=== PATIENT | female | born 1955 | race African-American/Black ===

== ENCOUNTER 2022-03-18 13:37 | Inpatient (IN) | payer SELFPAY ==
[~2022-03-18] VITALS: Ht 157.5 cm; Wt 67.7 kg
[2022-03-18] MEDS ORDERED: ONDANSETRON HCL 4MG/2ML INJ IV ONE (18:00)
[2022-03-18] MEDS ORDERED: MORPHINE SULFATE 4 MG/ML CPJ (NOT FOR IM USE) IV ONE (18:00)
[2022-03-18] MEDS ORDERED: SODIUM CHLORIDE 0.9% 1,000 ML IV ONE (19:45)
[2022-03-18 20:49] LABS: BASOPHILS % 0.2 % (0.0-2.0); EOSINOPHILS % 0.1 % (0.0-5.0); HEMATOCRIT. 32.6 % (36.0-48.0); HEMOGLOBIN. 10.3 g/dL (12.0-16.0); LYMPHOCYTES % 22.6 % (20.0-50.0); MEAN CORPUSCULAR VOLUME 85.6 fL (81.0-99.0); MEAN PLATELET VOLUME 9.9 fl (7.4-10.4); MONOCYTES % 5.1 % (2.0-8.0); PLATELET 324 x1000/uL (130-400); RED BLOOD CELL COUNT 3.81 mill/uL (4.2-5.4); RED CELL DISTRIBUTION WIDTH 13.4 % (11.6-14.6)
[2022-03-18 21:02] LABS: INR 1.1
[2022-03-18 21:10] LABS: CHLORIDE 92 mEq/L (98-107)
[2022-03-18] MEDS ORDERED: MORPHINE SULFATE 4 MG/ML CPJ (NOT FOR IM USE) IV NR (21:15)
[2022-03-18] MEDS ORDERED: ONDANSETRON HCL 4MG/2ML INJ IV NR (21:15)
[2022-03-18] MEDS: FAMOTIDINE 20MG/2ML VIAL IV SCH (21:32)
[2022-03-18] MEDS ORDERED: METRONIDAZOLE 500 MG PREMIX 100 ML IV ONE (21:45)
[2022-03-18] MEDS ORDERED: CEFTRIAXONE 1 G PREMIX 50 ML IV ONE (21:45)
[2022-03-18 21:47] LABS: CLARITY URINE CLOUDY (CLEAR); COLOR URINE DARK YELLOW (YELLOW); KETONES URINE 2+ (NEGATIVE); LEUKOCYTE ESTERASE URINE NEGATIVE (NEGATIVE); NITRITE URINE NEGATIVE (NEGATIVE); OCCULT BLOOD URINE 2+ (NEGATIVE); PROTEIN URINE 1+ (NEGATIVE); SPECIFIC GRAVITY URINE 1.031 (1.005-1.030)
[2022-03-18 22:09] LABS: *AMPHETAMINES SCREEN URINE NEGATIVE (NEGATIVE); *BARBITURATES SCREEN URINE NEGATIVE (NEGATIVE); *BENZODIAZEPINES SCREEN URINE NEGATIVE (NEGATIVE); *COCAINE SCREEN URINE NEGATIVE (NEGATIVE); CANNABINOID URINE SCREEN NEGATIVE (NEGATIVE); METHADONE URINE SCREEN NEGATIVE (NEGATIVE); OPIATES URINE SCREEN NEGATIVE (NEGATIVE); PHENCYCLIDINE URINE SCREEN NEGATIVE (NEGATIVE)
[2022-03-19] MEDS ORDERED: CEFTRIAXONE 1 G PREMIX 50 ML IV NR (01:45)
[2022-03-19] MEDS ORDERED: SODIUM CHLORIDE 0.9% 1,000 ML IV SCH (07:30)
[2022-03-19] MEDS ORDERED: ONDANSETRON HCL 4MG/2ML INJ IV PRN (09:15)
[2022-03-19] MEDS ORDERED: HYDROCODONE/ACETAMINOPHEN 5/325MG TABLET PO PRN (09:15)
[2022-03-19] MEDS: FAMOTIDINE 20MG/2ML VIAL IV SCH (09:29)
[2022-03-19] MEDS ORDERED: NALOXONE HCL 0.4MG/ML VIAL IV PRN (09:30)
[2022-03-19] MEDS ORDERED: PIPERACILLIN/TAZ 3.375G PREMIX 50 ML IV SCH ×2 (09:30→14:00)
[2022-03-19 12:00] VITALS: BP_SYST 100; BP_DIAS 78; BP_DIAS 80
[2022-03-19 14:00] VITALS: BP 110/78
[2022-03-19] MEDS: PIPERACILLIN/TAZOBACTAM 3.375G in DEXT 5% WATER 50ML IV SCH ×2 (15:12→23:11)
[2022-03-19 16:00] VITALS: BP 99/68
[2022-03-19 18:00] VITALS: BP 98/70
[2022-03-19 20:00] VITALS: BP 108/62
[2022-03-19] MEDS ORDERED: ACETAMINOPHEN 325MG TABLET PO PRN (22:30)
[2022-03-19] MEDS ORDERED: DEXTROSE 50% WATER 50ML SYRINGE IV PRN (22:30)
[2022-03-20] VITALS: BP 109/61
[2022-03-20] MEDS: BLOOD SUGAR DIAGNOSTIC STRIP TEST SCH ×4 (07:12→21:00)
[2022-03-20] MEDS: PIPERACILLIN/TAZOBACTAM 3.375G in DEXT 5% WATER 50ML IV SCH ×3 (07:12→23:03)
[2022-03-20] MEDS: INSULIN LISPRO 100 UNITS/ML SUBCUT SCH ×4 (07:19→23:05)
[2022-03-20 08:00] VITALS: BP 101/97
[2022-03-20 08:16] LABS: MEAN CORPUSCULAR HEMOGLOBIN 26.8 pg (28.0-32.0); MEAN CORPUSCULAR VOLUME 87.3 fL (81.0-99.0); MEAN PLATELET VOLUME 10.8 fl (7.4-10.4); PLATELET 233 x1000/uL (130-400); RED BLOOD CELL COUNT 3.12 mill/uL (4.2-5.4); RED CELL DISTRIBUTION WIDTH 13.9 % (11.6-14.6)
[2022-03-20 08:21] LABS: HEMATOCRIT. 27.3 % (36.0-48.0); HEMOGLOBIN. 8.4 g/dL (12.0-16.0)
[2022-03-20 08:47] LABS: CHLORIDE 98 mEq/L (98-107)
[2022-03-20] MEDS ORDERED: INSULIN GLARGINE 100 UNITS/ML SUBCUT SCH (10:00)
[2022-03-20] MEDS: FAMOTIDINE 20MG/2ML VIAL IV SCH (10:14)
[2022-03-20 12:00] VITALS: BP 99/98
[2022-03-20 12:23] LABS: PLATELET ESTIMATE NORMAL
[2022-03-20 16:00] VITALS: BP 118/71
[2022-03-20 17:14] LABS: TOTAL IRON BINDING CAPACITY 210 ug/dL (250-450)
[2022-03-20] MEDS: IRON SUCROSE COMPLEX 100 MG/5 ML ML IV SCH (18:22)
[2022-03-20 18:26] LABS: CARCINO EMBRYONIC ANTIGEN 2.3 ng/ml
[2022-03-20 18:38] LABS: HEPATITIS B SURFACE ANTIGEN NEGATIVE
[2022-03-20 18:47] VITALS: BP 118/71
[2022-03-20 20:00] VITALS: BP 102/60
[2022-03-20] MEDS ORDERED: ACETAMINOPHEN 650MG SUPP PR PRN (21:00)
[2022-03-20] MEDS: INSULIN GLARGINE 100 UNITS/ML SUBCUT SCH (23:05)
[2022-03-21] VITALS (79 sets, daily range): BP systolic 83–137; BP diastolic 36–74
[2022-03-21] MEDS ORDERED: IOHEXOL-300 100 ML BOTTLE ONE (03:08)
[2022-03-21] MEDS: PIPERACILLIN/TAZOBACTAM 3.375G in DEXT 5% WATER 50ML IV SCH ×3 (05:15→21:05)
[2022-03-21] MEDS: BLOOD SUGAR DIAGNOSTIC STRIP TEST SCH ×4 (05:43→20:56)
[2022-03-21] MEDS: INSULIN LISPRO 100 UNITS/ML SUBCUT SCH ×4 (05:48→20:57)
[2022-03-21] MEDS: INSULIN GLARGINE 100 UNITS/ML SUBCUT SCH ×2 (10:00→21:09)
[2022-03-21 11:34] LABS: HEMATOCRIT. 27.5 % (36.0-48.0); HEMOGLOBIN. 8.7 g/dL (12.0-16.0); MEAN PLATELET VOLUME 10.3 fl (7.4-10.4); PLATELET 227 x1000/uL (130-400); RED BLOOD CELL COUNT 3.24 mill/uL (4.2-5.4); RED CELL DISTRIBUTION WIDTH 13.6 % (11.6-14.6)
[2022-03-21 12:13] LABS: CHLORIDE 103 mEq/L (98-107)
[2022-03-21 12:21] LABS: BG BASE EXCESS -0.7 mmol/L (-2.0-2.0); BG CARBOXYHEMOGLOBIN 0.3 % (0.5-1.5); BG DEOXYHEMOGLOBIN 1.7 % (0.0-5.0); BG FRACTION INSPIRED OXYGEN 21; BG HCO3 ACT 22.3 mmol/L (22.0-26.0); BG METHEMOGLOBIN 0.3 % (0.0-1.5); BG OXYGEN SATURATION 98.3 % (92.0-98.5); BG OXYHEMOGLOBIN 97.7 % (94.0-97.0); BG PCO2 30.8 mmHg (35.0-45.0); BG PH 7.478 (7.350-7.450); BG PO2 102.3 mmHg (75.0-100.0); BG SAMPLE SITE RIGHT BRACHIAL; BG TOTAL HEMOGLOBIN 9.3 g/dL (12.0-18.0); BG VENT MODE ROOM AIR
[2022-03-21] MEDS ORDERED: POTASSIUM CHLORIDE 20MEQ TABLET SR PO NR (12:30)
[2022-03-21 12:36] LABS: PLATELET ESTIMATE NORMAL
[2022-03-21] MEDS: ENOXAPARIN 40MG/0.4ML SYR SUBCUT SCH (17:43)
[2022-03-21] MEDS: IRON SUCROSE COMPLEX 100 MG/5 ML ML IV SCH (17:43)
[2022-03-21] MEDS: BISACODYL 5MG TABLET PO SCH (21:04)
[2022-03-21] MEDS: METOCLOPRAMIDE HCL 10MG/2ML VIAL IV SCH (21:04)
[2022-03-21] MEDS: SORBITOL 70% SOLN 30ML PO SCH (21:09)
[2022-03-22] VITALS (64 sets, daily range): BP systolic 53–148; BP diastolic 26–85
[2022-03-22] MEDS: METOCLOPRAMIDE HCL 10MG/2ML VIAL IV SCH (00:12)
[2022-03-22] MEDS: SORBITOL 70% SOLN 30ML PO SCH (00:13)
[2022-03-22] MEDS: BISACODYL 5MG TABLET PO SCH (00:13)
[2022-03-22 05:32] LABS: HEMATOCRIT. 27.9 % (36.0-48.0); HEMOGLOBIN. 8.6 g/dL (12.0-16.0); MEAN CORPUSCULAR HEMOGLOBIN 26.5 pg (28.0-32.0); MEAN CORPUSCULAR VOLUME 85.9 fL (81.0-99.0); MEAN PLATELET VOLUME 10.7 fl (7.4-10.4); PLATELET 227 x1000/uL (130-400); RED BLOOD CELL COUNT 3.25 mill/uL (4.2-5.4); RED CELL DISTRIBUTION WIDTH 13.8 % (11.6-14.6)
[2022-03-22 05:41] LABS: INR 1.1; PROTHROMBIN TIME 11.5 sec (9.6-11.0)
[2022-03-22 05:58] LABS: CHLORIDE 102 mEq/L (98-107)
[2022-03-22] MEDS: BLOOD SUGAR DIAGNOSTIC STRIP TEST SCH ×4 (06:08→21:20)
[2022-03-22] MEDS: INSULIN LISPRO 100 UNITS/ML SUBCUT SCH ×4 (06:08→21:00)
[2022-03-22] MEDS: PIPERACILLIN/TAZOBACTAM 3.375G in DEXT 5% WATER 50ML IV SCH ×3 (06:09→21:30)
[2022-03-22] MEDS ORDERED: GADOTERATE MEGLUMINE 5 MMOL/10 ML VIAL IV ONE (09:21)
[2022-03-22] MEDS: INSULIN GLARGINE 100 UNITS/ML SUBCUT SCH ×2 (10:00→21:20)
[2022-03-22 10:08] LABS: PLATELET ESTIMATE NORMAL
[2022-03-22] MEDS ORDERED: POTASSIUM CHLORIDE INJ 40 MEQ in DEXT 5% WATER 250 ML IV ONE (11:15)
[2022-03-22] MEDS: KCL 20MEQ/100ML PREMIX 100 ML IV SCH ×2 (13:13→16:01)
[2022-03-22] MEDS ORDERED: VASOPRESSIN 20 UNIT in SODIUM CHLORIDE 0.9% 99 ML IV STA (13:41)
[2022-03-22] MEDS ORDERED: SODIUM BICARBONATE 4% (2.4MEQ) 5ML VIAL IV ONE ×2 (13:50→13:51)
[2022-03-22] MEDS ORDERED: LIDOCAINE HCL 1% 50ML VIAL (10MG/ML) ONE (13:50)
[2022-03-22] MEDS ORDERED: MORPHINE SULFATE 2 MG/ML CPJ (NOT FOR IM USE) IV SCH (14:30)
[2022-03-22 17:35] LABS: HEMATOCRIT 30.3 % (36.0-48.0); HEMOGLOBIN 9.3 g/dL (12.0-16.0)
[2022-03-22] MEDS: ENOXAPARIN 40MG/0.4ML SYR SUBCUT SCH (18:00)
[2022-03-22] MEDS: IRON SUCROSE COMPLEX 100 MG/5 ML ML IV SCH (18:53)
[2022-03-23] VITALS (32 sets, daily range): BP systolic 95–132; BP diastolic 45–82
[2022-03-23 06:00] LABS: HEMATOCRIT. 26.9 % (36.0-48.0); HEMOGLOBIN. 8.6 g/dL (12.0-16.0); MEAN CORPUSCULAR HEMOGLOBIN 27.1 pg (28.0-32.0); MEAN CORPUSCULAR VOLUME 84.7 fL (81.0-99.0); MEAN PLATELET VOLUME 11.1 fl (7.4-10.4); PLATELET 232 x1000/uL (130-400); RED BLOOD CELL COUNT 3.17 mill/uL (4.2-5.4); RED CELL DISTRIBUTION WIDTH 13.4 % (11.6-14.6)
[2022-03-23] MEDS: INSULIN LISPRO 100 UNITS/ML SUBCUT SCH ×3 (06:35→18:02)
[2022-03-23] MEDS: PIPERACILLIN/TAZOBACTAM 3.375G in DEXT 5% WATER 50ML IV SCH ×2 (06:35→14:52)
[2022-03-23] MEDS: BLOOD SUGAR DIAGNOSTIC STRIP TEST SCH ×4 (06:35→21:38)
[2022-03-23 06:38] LABS: CHLORIDE 105 mEq/L (98-107)
[2022-03-23] MEDS: INSULIN GLARGINE 100 UNITS/ML SUBCUT SCH (10:00)
[2022-03-23 12:13] LABS: PLATELET ESTIMATE NORMAL
[2022-03-23] MEDS: ENOXAPARIN 40MG/0.4ML SYR SUBCUT SCH (18:01)
[2022-03-23] MEDS: ATORVASTATIN CALCIUM 20MG TABLET PO SCH (21:00)
[2022-03-24] VITALS: BP 121/70
[2022-03-24] MEDS: INSULIN GLARGINE 100 UNITS/ML SUBCUT SCH ×3 (00:41→21:21)
[2022-03-24] MEDS: INSULIN LISPRO 100 UNITS/ML SUBCUT SCH ×5 (00:42→21:00)
[2022-03-24] MEDS: PIPERACILLIN/TAZOBACTAM 3.375G in DEXT 5% WATER 50ML IV SCH ×4 (00:42→21:32)
[2022-03-24 04:00] VITALS: BP 101/58
[2022-03-24] MEDS: BLOOD SUGAR DIAGNOSTIC STRIP TEST SCH ×4 (06:17→21:20)
[2022-03-24 07:03] LABS: HEMATOCRIT. 26.1 % (36.0-48.0); HEMOGLOBIN. 8.2 g/dL (12.0-16.0); MEAN CORPUSCULAR VOLUME 85.5 fL (81.0-99.0); MEAN PLATELET VOLUME 11.2 fl (7.4-10.4); PLATELET 220 x1000/uL (130-400); RED BLOOD CELL COUNT 3.05 mill/uL (4.2-5.4); RED CELL DISTRIBUTION WIDTH 13.5 % (11.6-14.6)
[2022-03-24 07:06] LABS: CHLORIDE 100 mEq/L (98-107)
[2022-03-24 07:36] LABS: HDL CHOLESTEROL 10 mg/dL (40-59); LDL CHOLESTEROL 264 mg/dL (5-100)
[2022-03-24 08:00] VITALS: BP 112/61
[2022-03-24] MEDS: ASPIRIN 81MG TABLET PO SCH (09:19)
[2022-03-24 10:45] LABS: VITAMIN B12 SERUM > 2000.0 pg/mL (211-911)
[2022-03-24 12:00] VITALS: BP 110/63
[2022-03-24 13:40] LABS: PLATELET ESTIMATE NORMAL
[2022-03-24 16:00] VITALS: BP 108/61
[2022-03-24] MEDS: ENOXAPARIN 40MG/0.4ML SYR SUBCUT SCH (17:56)
[2022-03-24] MEDS ORDERED: LACTULOSE 20G/30ML UDC PO NR (18:30)
[2022-03-24 20:00] VITALS: BP 129/77
[2022-03-24] MEDS: SENNOSIDES 8.6MG TABLET PO SCH (21:32)
[2022-03-25] VITALS: BP 117/66
[2022-03-25 04:00] VITALS: BP 111/61
[2022-03-25] MEDS: PIPERACILLIN/TAZOBACTAM 3.375G in DEXT 5% WATER 50ML IV SCH ×2 (04:59→14:11)
[2022-03-25] MEDS: INSULIN LISPRO 100 UNITS/ML SUBCUT SCH ×4 (05:13→21:13)
[2022-03-25] MEDS: BLOOD SUGAR DIAGNOSTIC STRIP TEST SCH ×4 (05:13→21:12)
[2022-03-25 08:00] VITALS: BP 119/62
[2022-03-25 08:08] LABS: HEMATOCRIT. 26.2 % (36.0-48.0); HEMOGLOBIN. 8.6 g/dL (12.0-16.0); MEAN CORPUSCULAR HEMOGLOBIN 27.9 pg (28.0-32.0); MEAN CORPUSCULAR VOLUME 85.3 fL (81.0-99.0); MEAN PLATELET VOLUME 9.9 fl (7.4-10.4); PLATELET 266 x1000/uL (130-400); RED BLOOD CELL COUNT 3.07 mill/uL (4.2-5.4); RED CELL DISTRIBUTION WIDTH 13.3 % (11.6-14.6)
[2022-03-25 08:23] LABS: CHLORIDE 102 mEq/L (98-107)
[2022-03-25] MEDS: ASPIRIN 81MG TABLET PO SCH (09:00)
[2022-03-25] MEDS: DOCUSATE SODIUM 250MG CAPSULE PO SCH (09:00)
[2022-03-25] MEDS ORDERED: POTASSIUM CHLORIDE 20MEQ TABLET SR PO NR (10:30)
[2022-03-25 12:00] VITALS: BP 128/69
[2022-03-25 16:00] VITALS: BP 140/70
[2022-03-25] MEDS: ENOXAPARIN 40MG/0.4ML SYR SUBCUT SCH (18:30)
[2022-03-25 20:00] VITALS: BP 127/71
[2022-03-25] MEDS: SENNOSIDES 8.6MG TABLET PO SCH (21:12)
[2022-03-25] MEDS: ATORVASTATIN CALCIUM 20MG TABLET PO SCH (21:12)
[2022-03-25] MEDS: INSULIN GLARGINE 100 UNITS/ML SUBCUT SCH (21:14)
[2022-03-25 21:35] LABS: PLATELET ESTIMATE NORMAL
[2022-03-25] MEDS: CEFTRIAXONE 2 G in DEXTROSE 5% WATER 50 ML IV SCH (22:20)
[2022-03-26] VITALS: BP 122/68
[2022-03-26 04:00] VITALS: BP 124/68
[2022-03-26] MEDS: INSULIN LISPRO 100 UNITS/ML SUBCUT SCH ×4 (06:15→21:49)
[2022-03-26] MEDS: BLOOD SUGAR DIAGNOSTIC STRIP TEST SCH ×4 (06:15→21:49)
[2022-03-26 07:33] LABS: HEMATOCRIT. 27.2 % (36.0-48.0); HEMOGLOBIN. 8.8 g/dL (12.0-16.0); MEAN CORPUSCULAR HEMOGLOBIN 27.8 pg (28.0-32.0); MEAN CORPUSCULAR VOLUME 85.6 fL (81.0-99.0); MEAN PLATELET VOLUME 9.6 fl (7.4-10.4); PLATELET 326 x1000/uL (130-400); RED BLOOD CELL COUNT 3.18 mill/uL (4.2-5.4); RED CELL DISTRIBUTION WIDTH 13.6 % (11.6-14.6)
[2022-03-26 07:41] LABS: CHLORIDE 103 mEq/L (98-107)
[2022-03-26 08:00] VITALS: BP 130/69
[2022-03-26] MEDS: DOCUSATE SODIUM 250MG CAPSULE PO SCH (09:32)
[2022-03-26] MEDS: ASPIRIN 81MG TABLET PO SCH (09:32)
[2022-03-26] MEDS: INSULIN GLARGINE 100 UNITS/ML SUBCUT SCH ×2 (09:37→21:47)
[2022-03-26 12:00] VITALS: BP 132/66
[2022-03-26] MEDS: CEFTRIAXONE 2 G in DEXTROSE 5% WATER 50 ML IV SCH (15:20)
[2022-03-26 16:00] VITALS: BP 129/70
[2022-03-26] MEDS: ENOXAPARIN 40MG/0.4ML SYR SUBCUT SCH (17:45)
[2022-03-26 20:00] VITALS: BP 134/74
[2022-03-26] MEDS: SENNOSIDES 8.6MG TABLET PO SCH (21:47)
[2022-03-26] MEDS: ATORVASTATIN CALCIUM 20MG TABLET PO SCH (21:47)
[2022-03-27] VITALS: BP 129/72
[2022-03-27 04:00] VITALS: BP 129/72
[2022-03-27 05:16] LABS: PLATELET ESTIMATE NORMAL
[2022-03-27] MEDS: BLOOD SUGAR DIAGNOSTIC STRIP TEST SCH ×4 (06:32→21:57)
[2022-03-27] MEDS: INSULIN LISPRO 100 UNITS/ML SUBCUT SCH ×4 (06:33→21:56)
[2022-03-27 07:23] LABS: BASOPHILS % 0.8 % (0.0-2.0); EOSINOPHILS % 0.3 % (0.0-5.0); HEMATOCRIT. 28.6 % (36.0-48.0); HEMOGLOBIN. 9.3 g/dL (12.0-16.0); LYMPHOCYTES % 18.7 % (20.0-50.0); MEAN CORPUSCULAR HEMOGLOBIN 27.7 pg (28.0-32.0); MEAN CORPUSCULAR VOLUME 85.6 fL (81.0-99.0); MEAN PLATELET VOLUME 9.1 fl (7.4-10.4); MONOCYTES % 7.3 % (2.0-8.0); NEUTROPHILS % 72.9 % (40.0-76.0); PLATELET 353 x1000/uL (130-400); RED BLOOD CELL COUNT 3.35 mill/uL (4.2-5.4); RED CELL DISTRIBUTION WIDTH 13.5 % (11.6-14.6)
[2022-03-27 07:33] LABS: CHLORIDE 105 mEq/L (98-107)
[2022-03-27 08:00] VITALS: BP 129/73
[2022-03-27] MEDS ORDERED: BISACODYL 10MG SUPP PR NR (08:45)
[2022-03-27] MEDS ORDERED: POLYETHYLENE GLYCOL 3350 (17GM) 1 DOSE PACK PO PRN (08:45)
[2022-03-27] MEDS: ASPIRIN 81MG TABLET PO SCH (09:28)
[2022-03-27] MEDS: DOCUSATE SODIUM 250MG CAPSULE PO SCH (09:28)
[2022-03-27] MEDS: CLOPIDOGREL 75MG TABLET PO SCH (09:29)
[2022-03-27] MEDS: INSULIN GLARGINE 100 UNITS/ML SUBCUT SCH ×2 (10:51→21:55)
[2022-03-27 12:00] VITALS: BP 113/75
[2022-03-27 16:00] VITALS: BP 130/72
[2022-03-27] MEDS: CEFTRIAXONE 2 G in DEXTROSE 5% WATER 50 ML IV SCH (17:18)
[2022-03-27] MEDS: ENOXAPARIN 40MG/0.4ML SYR SUBCUT SCH (17:40)
[2022-03-27 20:00] VITALS: BP 147/83
[2022-03-27] MEDS: SENNOSIDES 8.6MG TABLET PO SCH (21:56)
[2022-03-27] MEDS: ATORVASTATIN CALCIUM 20MG TABLET PO SCH (21:56)
[2022-03-28] VITALS: BP 112/65
[2022-03-28 04:00] VITALS: BP 106/60
[2022-03-28] MEDS: BLOOD SUGAR DIAGNOSTIC STRIP TEST SCH ×4 (05:57→21:36)
[2022-03-28] MEDS: INSULIN LISPRO 100 UNITS/ML SUBCUT SCH ×4 (05:58→21:46)
[2022-03-28 08:00] VITALS: BP 116/61
[2022-03-28 08:04] LABS: BASOPHILS % 1.1 % (0.0-2.0); EOSINOPHILS % 0.6 % (0.0-5.0); HEMOGLOBIN. 9.3 g/dL (12.0-16.0); LYMPHOCYTES % 21.7 % (20.0-50.0); MEAN CORPUSCULAR HEMOGLOBIN 27.6 pg (28.0-32.0); MEAN CORPUSCULAR VOLUME 86.2 fL (81.0-99.0); MEAN PLATELET VOLUME 8.9 fl (7.4-10.4); MONOCYTES % 7.5 % (2.0-8.0); NEUTROPHILS % 69.1 % (40.0-76.0); PLATELET 379 x1000/uL (130-400); RED BLOOD CELL COUNT 3.37 mill/uL (4.2-5.4); RED CELL DISTRIBUTION WIDTH 13.9 % (11.6-14.6)
[2022-03-28 08:25] LABS: CHLORIDE 105 mEq/L (98-107)
[2022-03-28] MEDS: CLOPIDOGREL 75MG TABLET PO SCH (09:37)
[2022-03-28] MEDS: DOCUSATE SODIUM 250MG CAPSULE PO SCH (09:37)
[2022-03-28] MEDS: ASPIRIN 81MG TABLET PO SCH (09:37)
[2022-03-28] MEDS: INSULIN GLARGINE 100 UNITS/ML SUBCUT SCH ×2 (09:38→21:46)
[2022-03-28 12:00] VITALS: BP_SYST 141; BP_SYST 144; BP_DIAS 80
[2022-03-28 16:00] VITALS: BP 143/65
[2022-03-28] MEDS: CEFTRIAXONE 2 G in DEXTROSE 5% WATER 50 ML IV SCH (16:42)
[2022-03-28] MEDS: ENOXAPARIN 40MG/0.4ML SYR SUBCUT SCH (18:08)
[2022-03-28 20:00] VITALS: BP 139/66
[2022-03-28] MEDS: SENNOSIDES 8.6MG TABLET PO SCH (21:31)
[2022-03-28] MEDS: ATORVASTATIN CALCIUM 20MG TABLET PO SCH (21:31)
[2022-03-29] VITALS: BP 116/62
[2022-03-29 04:00] VITALS: BP 122/65
[2022-03-29] MEDS: BLOOD SUGAR DIAGNOSTIC STRIP TEST SCH ×4 (05:50→20:07)
[2022-03-29] MEDS: INSULIN LISPRO 100 UNITS/ML SUBCUT SCH ×4 (05:51→20:26)
[2022-03-29 07:00] LABS: CHLORIDE 106 mEq/L (98-107)
[2022-03-29 07:12] LABS: BASOPHILS % 0.9 % (0.0-2.0); EOSINOPHILS % 0.3 % (0.0-5.0); HEMATOCRIT. 28.7 % (36.0-48.0); HEMOGLOBIN. 9.2 g/dL (12.0-16.0); LYMPHOCYTES % 26.6 % (20.0-50.0); MEAN CORPUSCULAR HEMOGLOBIN 27.4 pg (28.0-32.0); MEAN CORPUSCULAR VOLUME 85.5 fL (81.0-99.0); MEAN PLATELET VOLUME 9.6 fl (7.4-10.4); NEUTROPHILS % 64.2 % (40.0-76.0); PLATELET 431 x1000/uL (130-400); RED BLOOD CELL COUNT 3.35 mill/uL (4.2-5.4); RED CELL DISTRIBUTION WIDTH 14.2 % (11.6-14.6)
[2022-03-29 08:00] VITALS: BP 104/57
[2022-03-29] MEDS: CLOPIDOGREL 75MG TABLET PO SCH (09:16)
[2022-03-29] MEDS: DOCUSATE SODIUM 250MG CAPSULE PO SCH (09:16)
[2022-03-29] MEDS: ASPIRIN 81MG TABLET PO SCH (09:16)
[2022-03-29] MEDS: INSULIN GLARGINE 100 UNITS/ML SUBCUT SCH ×2 (09:49→22:03)
[2022-03-29 12:00] VITALS: BP 140/81
[2022-03-29 16:00] VITALS: BP 121/83
[2022-03-29] MEDS: CEFTRIAXONE 2 G in DEXTROSE 5% WATER 50 ML IV SCH (16:41)
[2022-03-29] MEDS: ENOXAPARIN 40MG/0.4ML SYR SUBCUT SCH (18:38)
[2022-03-29 20:00] VITALS: BP 145/72
[2022-03-29] MEDS: ATORVASTATIN CALCIUM 20MG TABLET PO SCH (20:25)
[2022-03-29] MEDS: SENNOSIDES 8.6MG TABLET PO SCH (20:25)
[2022-03-30] VITALS: BP 122/64
[2022-03-30 04:00] VITALS: BP 115/60
[2022-03-30] MEDS: BLOOD SUGAR DIAGNOSTIC STRIP TEST SCH ×4 (05:59→20:45)
[2022-03-30] MEDS: INSULIN LISPRO 100 UNITS/ML SUBCUT SCH ×4 (05:59→21:29)
[2022-03-30 06:31] LABS: BASOPHILS % 0.8 % (0.0-2.0); EOSINOPHILS % 0.3 % (0.0-5.0); HEMATOCRIT. 29.3 % (36.0-48.0); HEMOGLOBIN. 9.5 g/dL (12.0-16.0); LYMPHOCYTES % 18.6 % (20.0-50.0); MEAN CORPUSCULAR HEMOGLOBIN 27.8 pg (28.0-32.0); MEAN PLATELET VOLUME 9.4 fl (7.4-10.4); MONOCYTES % 7.9 % (2.0-8.0); NEUTROPHILS % 72.4 % (40.0-76.0); PLATELET 449 x1000/uL (130-400); RED CELL DISTRIBUTION WIDTH 14.2 % (11.6-14.6)
[2022-03-30 06:44] LABS: CHLORIDE 102 mEq/L (98-107)
[2022-03-30 08:00] VITALS: BP 107/59
[2022-03-30] MEDS: DOCUSATE SODIUM 250MG CAPSULE PO SCH (08:07)
[2022-03-30] MEDS: CLOPIDOGREL 75MG TABLET PO SCH (08:07)
[2022-03-30] MEDS: ASPIRIN 81MG TABLET PO SCH (08:07)
[2022-03-30] MEDS: INSULIN GLARGINE 100 UNITS/ML SUBCUT SCH ×2 (09:12→21:30)
[2022-03-30 12:00] VITALS: BP 108/63
[2022-03-30] MEDS ORDERED: DOCU250C14 PO (14:50)
[2022-03-30] MEDS ORDERED: LEVO750T46 MT (14:50)
[2022-03-30] MEDS ORDERED: CLOP75TA15 PO (14:50)
[2022-03-30] MEDS ORDERED: ASPI-1160 PO (14:50)
[2022-03-30] MEDS ORDERED: LANTUSUD SUBCUT (14:50)
[2022-03-30] MEDS ORDERED: ATOR20TA PO (14:50)
[2022-03-30 16:00] VITALS: BP 105/81
[2022-03-30] MEDS: ENOXAPARIN 40MG/0.4ML SYR SUBCUT SCH (18:33)
[2022-03-30] MEDS: CEFTRIAXONE 2 G in DEXTROSE 5% WATER 50 ML IV SCH (18:33)
[2022-03-30 20:00] VITALS: BP 129/66
[2022-03-30] MEDS ORDERED: ATORVASTATIN CALCIUM 40MG TABLET PO SCH (21:00)
[2022-03-30] MEDS: SENNOSIDES 8.6MG TABLET PO SCH (21:29)
[2022-03-31] VITALS: BP 128/61
[2022-03-31 04:00] VITALS: BP 125/72
[2022-03-31] MEDS: BLOOD SUGAR DIAGNOSTIC STRIP TEST SCH ×3 (06:40→16:47)
[2022-03-31] MEDS: INSULIN LISPRO 100 UNITS/ML SUBCUT SCH ×3 (07:10→16:51)
[2022-03-31 08:00] VITALS: BP 100/66
[2022-03-31] MEDS: INSULIN GLARGINE 100 UNITS/ML SUBCUT SCH (09:44)
[2022-03-31] MEDS: DOCUSATE SODIUM 250MG CAPSULE PO SCH (09:44)
[2022-03-31] MEDS: CLOPIDOGREL 75MG TABLET PO SCH (09:44)
[2022-03-31] MEDS: ASPIRIN 81MG TABLET PO SCH (09:45)
[2022-03-31 12:00] VITALS: BP 118/68
[2022-03-31 16:00] VITALS: BP 110/66
[2022-03-31 16:30] VITALS: BP 110/66
[2022-03-31] MEDS: CEFTRIAXONE 2 G in DEXTROSE 5% WATER 50 ML IV SCH (16:47)
== END 2022-03-31 18:45 | disposition home or self-care (01) | DRG 720 ==
LOC: ER 13:37 → MICUSO 22:27 → 6WST 03-19 12:01 → MICUNO 03-21 02:17 → 7EST 03-23 21:09
PROVIDERS: ADMIT Internal Medicine; ATTEND Internal Medicine
PROC: 0F913ZZ Drainage of Right Lobe Liver, Percutaneous Approach (ICD-10-PCS; principal; 2022-03-22)
PROC: 4A00X4Z Measurement of Central Nervous Electrical Activity, External Approach (ICD-10-PCS; 2022-03-22)
DX: A41.59 Other Gram-negative sepsis (principal); G92.8 Other toxic encephalopathy; K75.0 Abscess of liver; E43 Unspecified severe protein-calorie malnutrition; K57.92 Diverticulitis of intestine, part unspecified, without perforation or abscess without bleeding; E87.8 Other disorders of electrolyte and fluid balance, not elsewhere classified; C26.9 Malignant neoplasm of ill-defined sites within the digestive system; E86.1 Hypovolemia; D63.8 Anemia in other chronic diseases classified elsewhere; E87.1 Hypo-osmolality and hyponatremia; E88.09 Other disorders of plasma-protein metabolism, not elsewhere classified; D50.9 Iron deficiency anemia, unspecified; E87.6 Hypokalemia; K59.00 Constipation, unspecified; R65.20 Severe sepsis without septic shock; B96.1 Klebsiella pneumoniae [K. pneumoniae] as the cause of diseases classified elsewhere; R74.01 Elevation of levels of liver transaminase levels; Z90.49 Acquired absence of other specified parts of digestive tract; Z28.310 Unvaccinated for COVID-19; Z68.27 Body mass index [BMI] 27.0-27.9, adult
CPT/HCPCS: 36415; 36600; 70553; 71045; 71260; 74176; 74177; 74183; 76700; 76942; 80048; 80053; 80061; 80076; 80305; 81003; 82105; 82270; 82375; 82378; 82607; 82728; 82746; 82805; 82962; 83036; 83540; 83550; 83605; 84145; 85014; 85018; 85025; 85044; 86301; 86705; 86709; 86803; 87077; 87186; 87340; 87426; 88108; 93005; 93306; 95816; 97110; 97112; 97116; 97162; 97166; 97530; 97535; 99285; A6261; A9577; C1729; C1760; C1769; C1887; J0696; J1650; J1815; J2270; J2405; J2543; J2765; J3480; J3490; J7030; J7050; J7060; Q9967

== ENCOUNTER 2022-07-23 17:28 | Emergency (ER) | payer OTHER ==
[~2022-07-23] VITALS: Ht 157.5 cm; Wt 55.0 kg
[~2022-07-23 17:28] MED LIST: ASPI-1160 PO; ATOR20TA PO; CLOP75TA15 PO; DOCU250C14 PO; LANTUSUD SUBCUT; LEVO750T68 MT
[2022-07-23 17:48] VITALS: BP 133/73
== END 2022-07-23 22:30 | disposition left against medical advice (07) ==
LOC: ER 17:45
DX: Z53.21 Procedure and treatment not carried out due to patient leaving prior to being seen by health care provider (principal)